=== PATIENT | female | born 1965 | race Caucasian/White ===

== ENCOUNTER 2022-01-20 11:51 | Outpatient (CLI) | payer OTHER, SELFPAY | END 2022-01-20 11:52 | disposition home or self-care (01) | PROVIDERS: PCP Nurse Practitioner Family; Visit Provider Nurse Practitioner Family | DX: Z00.00 Encounter for general adult medical examination without abnormal findings (principal); R10.9 Unspecified abdominal pain; Z12.4 Encounter for screening for malignant neoplasm of cervix | CPT/HCPCS: 80048; 80061; 81003; 85025; 87624; 88175 ==